=== PATIENT | male | born 1965 | race Caucasian/White ===

== ENCOUNTER 2020-12-20 18:11 | Observation (INO) ==
--- NOTE | 2020-12-20 19:08 | Emergency Department Note ---
History of Present Illness General Chief complaint: Neuro Symptoms/Deficit Stated complaint: BLACK OUT, CONFUSION, MEMORY LOSS Time Seen by Provider: 12/20/20 18:55 History of Present Illness Provider complaint: Difficulty speaking dysarthria Onset (ago): day(s) 2 Location: chest Severity: mild Pain Consistency: + intermittent Current Pain Intensity: 0 Quality: + aching Relieved By: + none Exacerbated By: + none Associated symptoms: + confusion, + chest pain and + weakness; no cough, no fever/chills, no headaches, no nausea/vomiting, no shortness of breath or no syncope 55-year-old male presents emergency department with . reports that yesterday they were going on vacation and she noticed that when they got to dinner the patient was disoriented and having difficulty speaking. She stated the patient was having difficulty speaking words. She also states that he was having some slurred speech when he was speaking. Patient states he got home and slept for a great amount of time because he was so tired when he woke up his symptoms got better. Today the patient's notes that his voice is still softer and muffled compared to in the past. Patient also reports some chest pain. Chest pain is currently mild and is intermittent. No difficulty b reathing. No falls or trauma recently. No headache. No blood thinning medication. Home Medications Medication Instructions Recorded Confirmed Type No Known Home Medications 12/20/20 12/20/20 History Allergies Allergy/AdvReac Type Severity Reaction Status Date / Time prednisone AdvReac Agitated, Unverified 12/20/20 20:09 Anxious Past Med/Surg History Medical History (Updated 12/21/20 @ 00:19 by Gold Prather) No significant past medical history Surgical History (Updated 12/20/20 @ 19:07 by Gold Prather) No pertinent past surgical history Family History Father Primary cancer of bone marrow Social History Smoking Status: Never smoker Hx Alcohol Use: No Hx Substance Use: No Preferred Language: Macedonian Beliefs That Will Affect Care: None marital status: Current Living Situation: Spouse Current Living Situation Comment: lives in 2 story home current occupational status: 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 Feels Safe at Home: Yes Safety Concerns: Feels Safe At This Time Assistive Devices: Glasses Review of Systems A total of 10 systems reviewed and were otherwise negative Physical Exam Vital Signs Vital Signs - 24 hr 12/20/20 18:16 12/20/20 20:17 Temperature 36.6 C Temperature Source Temporal Artery Scan Pulse Rate 70 Pulse Rate [Right] 58 L Pulse Rhythm Regular Pulse Strength Normal Respiratory Rate 18 16 Respiratory Effort / Characteristics Non-Labored Respiratory Depth Normal Respiratory Pattern Regular Blood Pressure 126/83 Blood Pressure [Left Arm] 108/76 Blood Pressure Mean 97 Blood Pressure Mean [Left Arm] 86 Blood Pressure Position Sitting Pulse Oximetry 97 97 Oxygen Delivery Method Room Air Room Air Sepsis Recent Fever Within 48 Hours No Sepsis New/Unexplained Change in Mental Status No Sepsis Action Taken by Nursing No Action Required Physical Exam GENERAL: He is oriented to person, place, and time. He appears well-developed and well-nourished. He does not appear distressed. HENT: Exam performed. - Head: Normocephalic and atraumatic. - Right Ear: External ear normal. No mastoid tenderness. - Left Ear: External ear normal. No mastoid tenderness. - Mouth/Throat: The oropharynx is clear and moist. No trismus in the jaw. No dental abscesses or uvula swelling. No oropharyngeal exudate or tonsillar abscesses. EYES: Conjunctivae and EOM are normal. Pupils are equal, round, and reactive to light. Right eye exhibits no discharge. Left eye exhibits no discharge. No scleral icterus. NECK: Normal range of motion. Neck supple. No JVD present. No spinous process tenderness present. No carotid bruit present. No rigidity. No tracheal deviation and normal range of motion present. No Brudzinski's sign and no Kernig's sign noted. CV: Normal rate, regular rhythm, normal heart sounds and intact distal pulses. There is no peripheral edema. Palpable radial pulses bue. PULM/CHEST: Effort normal and breath sounds normal. No respiratory distress. No stridor. He has no wheezes. He has no rales. - Chest Wall: He exhibits no tenderness. ABD: The abdomen is soft. Bowel sounds are normal. He has no distension. No mass is present. There is no tenderness. There is no rebound, no guarding, no Toth's sign and no tenderness at McBurney's point. Rovsig negative. MUSC/SKEL: Normal range of motion. There is no peripheral edema, tenderness or deformity. LYMPH: No cervical adenopathy. NEURO: He is alert and oriented to person, place, and time. He has normal strength. No cranial nerve deficit or sensory deficit. Coordination and gait normal. GCS eye subscore is 4. GCS verbal subscore is 5. GCS motor subscore is 6 . Cerebellar tests wnl. NIHSS: 0 SKIN: Skin is warm and dry. He is not diaphoretic. PSYCH: He has a normal mood and affect. Behavior is normal. Judgment and thought content normal. Course Course 1854: The patient was evaluated in room B11. A complete history and physical exam was performed Cardiac monitoring: An order was placed for continuous cardiac monitoring. The monitor shows a rate of 70 with sinus rhythm Patient symptoms have been going on for more than 24 hours. He states that some the symptoms have resolved. NIH stroke scale currently 0. Thus, patient is not a TPA candidate and no code stroke called at this time. 2054: Vital signs stable. Labs and imaging within normal limits. CT of the head is within normal limits. Patient will be admitted to the [facility] team for TIA. Discussed case with Dr. Lemus. Administered Medications Discontinued Medications Aspirin (Aspirin Chew 324 Mg) 324 mg PO NOW STA Stop: 12/20/20 21:06 Last Admin: 12/20/20 21:46 Dose: 324 mg Documented by: [id number] Ioversol (Optiray 320 125ml) 120 ml IV ONCE ONE Stop: 12/20/20 22:04 Last Admin: 12/20/20 22:06 Dose: 120 ml Documented by: [id number] Medical Decision Making Laboratory Data Result diagrams: 12/20/20 19:24 12/20/20 19:24 Lab Results 12/20/20 12/20/20 12/20/20 Range/Units 19:24 19:24 19:24 WBC 5.55 (4.8-10.8) K/uL RBC 4.91 (4.7-6.1) M/uL Hgb 14.7 (14.0-18.0) g/dL Hct 43.6 (42-52) % MCV 88.8 (80-100) fL MCH 29.9 (25-34) pg MCHC 33.7 (32-36) g/dL RDW Std Deviation 47.3 H (36.4-46.3) fL RDW Coeff of Amrtir 14.5 (11.5-14.5) % Plt Count 212 (130-400) K/uL MPV 10.8 H (7.4-10.4) fL Immature Gran % (Auto) 0.2 % Neut % (Auto) 54.4 % Lymph % (Auto) 32.3 % [place] % (Auto) 7.0 % Eos % (Auto) 5.6 % Baso % (Auto) 0.5 % Neut # (Auto) 3.02 (1.4-6.5) K/uL Lymph # (Auto) 1.79 (1.2-3.4) K/uL [place] # (Auto) 0.39 (0.11-0.59) K/uL Eos # (Auto) 0.31 (0-0.5) K/uL Baso # (Auto) 0.03 (0-0.2) K/uL Immature Gran # (Auto) 0.01 (0.00-0.02) K/uL PT 10.1 (9.0-12.0) Seconds INR 1.0 (0.9-1.1) APTT 25.1 (21.0-31.0) Seconds PTT Ratio 1.0 Sodium (136-145) mmol/L Potassium (3.5-5.1) mmol/L Chloride (98-107) mmol/L Carbon Dioxide (21-32) mmol/L Anion Gap (3-11) BUN (7-18) mg/dl Creatinine (0.6-1.4) mg/dl Est Cr Clr Drug Dosing ml/min Est GFR ( Amer) ml/min Est GFR (Non-Af Amer) ml/min BUN/Creatinine Ratio (10-20) Glucose (70-99) mg/dl Calcium (8.5-10.1) mg/dl Magnesium (1.8-2.4) mg/dl Total Bilirubin (0.2-1) mg/dl AST (15-37) U/L ALT (12-78) U/L Alkaline Phosphatase (45-117) U/L Troponin I (0-0.045) ng/ml Total Protein (6.4-8.2) gm/dl Albumin (3.4-5.0) gm/dl Globulin (2.5-4.0) gm/dl Albumin/Globulin Ratio (0.9-2) COVID-19 Eval Order SARS-CoV-2 (PCR) (Negative) Blood Type O Positive Antibody Screen NEGATIVE 12/20/20 12/20/20 12/20/20 Range/Units 19:24 19:25 19:25 WBC (4.8-10.8) K/uL RBC (4.7-6.1) M/uL Hgb (14.0-18.0) g/dL Hct (42-52) % MCV (80-100) fL MCH (25-34) pg MCHC (32-36) g/dL RDW Std Deviation (36.4-46.3) fL RDW Coeff of Martir (11.5-14.5) % Plt Count (130-400) K/uL MPV (7.4-10.4) fL Immature Gran % (Auto) % Neut % (Auto) % Lymph % (Auto) % [place] % (Auto) % Eos % (Auto) % Baso % (Auto) % Neut # (Auto) (1.4-6.5) K/uL Lymph # (Auto) (1.2-3.4) K/uL [place] # (Auto) (0.11-0.59) K/uL Eos # (Auto) (0-0.5) K/uL Baso # (Auto) (0-0.2) K/uL Immature Gran # (Auto) (0.00-0.02) K/uL PT (9.0-12.0) Seconds INR (0.9-1.1) APTT (21.0-31.0) Seconds PTT Ratio Sodium 140 (136-145) mmol/L Potassium 3.7 (3.5-5.1) mmol/L Chloride 106 (98-107) mmol/L Carbon Dioxide 29 (21-32) mmol/L Anion Gap 5.0 (3-11) BUN 21 H (7-18) mg/dl Creatinine 1.27 (0.6-1.4) mg/dl Est Cr Clr Drug Dosing 64.9 ml/min Est GFR ( Amer) 72.7 ml/min Est GFR (Non-Af Amer) 62.7 ml/min BUN/Creatinine Ratio 16.5 (10-20) Glucose 92 (70-99) mg/dl Calcium 8.8 (8.5-10.1) mg/dl Magnesium 2.2 (1.8-2.4) mg/dl Total Bilirubin 0.4 (0.2-1) mg/dl AST 19 (15-37) U/L ALT 32 (12-78) U/L Alkaline Phosphatase 70 (45-117) U/L Troponin I < 0.015 (0-0.045) ng/ml Total Protein 7.5 (6.4-8.2) gm/dl Albumin 3.9 (3.4-5.0) gm/dl Globulin 3.6 (2.5-4.0) gm/dl Albumin/Globulin Ratio 1.1 (0.9-2) COVID-19 Eval Order Covid19 at [facility] SARS-CoV-2 (PCR) NEGATIVE (Negative) Blood Type Antibody Screen Imaging Data Radiologist's Impression: Chest X-Ray 12/20/20 19:03 XR chest 1V portable CLINICAL HISTORY: Stroke Like Symptoms COMPARISON STUDY: No previous studies for comparison. FINDINGS: No pneumothorax. No pleural effusion. No large infiltrates or consolidative lesions are seen. Cardiomediastinal silhouette is within normal limits in size. No significant pulmonary vascular congestion.. Osseous structures: unremarkable IMPRESSION: 1. No acute pulmonary process. ACT 112: Negative or not required by law. The above report was generated using voice recognition software. It may contain grammatical, syntax or spelling errors. Electronically signed by: Loreta Box DO 12/20/2020 8:[address] 12/20/20 19:03 CT head/brain wo con CLINICAL HISTORY: Stroke Like Symptoms COMPARISON STUDY: No previous studies for comparison. TECHNIQUE: Axial CT of the brain is performed from the vertex to the skull base. IV contrast was not administered for this examination. A dose lowering technique was utilized adhering to the principles of ALARA. CT DOSE: 1074.96 mGy.cm FINDINGS: No intra or extra-axial mass lesions are visualized. There is no CT evidence of acute cortical infarction. There is no evidence of midline shift. There is no acute hemorrhage. No acute depressed calvarial fractures are visualized. There is no evidence of pathologic ventricular dilatation. Few mucous polyps are seen within left sphenoid sinus. Partial opacification of bilateral ethmoid air cells. IMPRESSION: No acute intracranial hemorrhage, no midline shift or space occupying lesions. Sinusitis. ACT 112: Negative or not required by law. The above report was generated using voice recognition software. It may contain grammatical, syntax or spelling errors. Electronically signed by: Loreta Box DO 12/20/2020 7:55 PM ECG Data Indication: + weakness Rate (beats per minute): 61 Rhythm: + normal sinus ECG Intervals/blocks: + Normal QRS, + Normal WA and + Normal QT-c ECG ST segments: + Normal ST segments MDM Narrative 1854: The patient was evaluated in room B11. A complete history and physical exam was performed Cardiac monitoring: An order was placed for continuous cardiac monitoring. The monitor shows a rate of 70 with sinus rhythm Patient symptoms have been going on for more than 24 hours. He states that some the symptoms have resolved. NIH stroke scale currently 0. Thus, patient is not a TPA candidate and no code stroke called at this time. 2054: Vital signs stable. Labs and imaging within normal limits. CT of the head is within normal limits. Patient will be admitted to the [facility] team for TIA. Discussed case with Dr. Lemus. Impression & Plan Brain TIA Discharge Plan Visit Data Chief Complaint: Neuro Symptoms/Deficit Stated Complaint: BLACK OUT, CONFUSION, MEMORY LOSS ED Provider: Gold Prather Discharge Problem: Brain TIA Patient Disposition: Admitted As Inpatient Discharge Instructions Interventions: ED Discharge Assessment Last Done: 12/20/20 21:47
[2020-12-20 19:32] LABS: Basophils # (auto) 0.03 K/uL (0-0.2); Basophils % (auto) 0.5 %; Eosinophils # (auto) 0.31 K/uL (0-0.5); Eosinophils % (auto) 5.6 %; Hematocrit (blood only) 43.6 % (42-52); Hemoglobin 14.7 g/dL (14.0-18.0); Immature Granulocytes # (auto) 0.01 K/uL (0.00-0.02); Immature Granulocytes % (auto) 0.2 %; Lymphocytes # (auto) 1.79 K/uL (1.2-3.4); Lymphocytes % (auto) 32.3 %; Mean Corpuscular Hemoglobin 29.9 pg (25-34); Mean Corpuscular Hgb Conc 33.7 g/dL (32-36); Mean Corpuscular Volume 88.8 fL (80-100); Mean Platelet Volume 10.8 fL (7.4-10.4); Monocytes # (auto) 0.39 K/uL (0.11-0.59); Neutrophils # (auto) 3.02 K/uL (1.4-6.5); Neutrophils % (auto) 54.4 %; Platelet Count 212 K/uL (130-400); RDW Coefficient of Variation 14.5 % (11.5-14.5); RDW Standard Deviation 47.3 fL (36.4-46.3); Red Blood Count 4.91 M/uL (4.7-6.1); White Blood Count 5.55 K/uL (4.8-10.8)
[2020-12-20 19:44] LABS: Partial Thromboplastin Time 25.1 Seconds (21.0-31.0); Prothrombin Time 10.1 Seconds (9.0-12.0)
[2020-12-20 19:50] LABS: Alanine Aminotransferase 32 U/L (12-78); Albumin Level 3.9 gm/dl (3.4-5.0); Aspartate Aminotransferase 19 U/L (15-37); BUN Creatinine Ratio 16.5 (10-20); Blood Urea Nitrogen 21 mg/dl (7-18); Calcium 8.8 mg/dl (8.5-10.1); Carbon Dioxide 29 mmol/L (21-32); Chloride 106 mmol/L (98-107); Creatinine Clr Calc Pharmacy 64.9 ml/min; Est GFR (African American) 72.7 ml/min; Est GFR (Non-African American) 62.7 ml/min; Glucose 92 mg/dl (70-99); Magnesium 2.2 mg/dl (1.8-2.4); Potassium 3.7 mmol/L (3.5-5.1); Sodium 140 mmol/L (136-145)
[2020-12-20 19:55] LABS: Albumin Globulin Ratio 1.1 (0.9-2); Alkaline Phosphatase 70 U/L (45-117); Bilirubin,Total 0.4 mg/dl (0.2-1); Globulin 3.6 gm/dl (2.5-4.0); Total Protein 7.5 gm/dl (6.4-8.2); Troponin I < 0.015 ng/ml (0-0.045)
--- NOTE | 2020-12-20 19:56 | CT Scan Report ---
CT head/brain wo con CLINICAL HISTORY: Stroke Like Symptoms COMPARISON STUDY: No previous studies for comparison. TECHNIQUE: Axial CT of the brain is performed from the vertex to the skull base. IV contrast was not administered for this examination. A dose lowering technique was utilized adhering to the principles of ALARA. CT DOSE: 1074.96 mGy.cm FINDINGS: No intra or extra-axial mass lesions are visualized. There is no CT evidence of acute cortical infarc tion. There is no evidence of midline shift. There is no acute hemorrhage. No acute depressed calvar ial fractures are visualized. There is no evidence of pathologic ventricular dilatation. Few mucous polyps are seen within left sphenoid sinus. Partial opacification of bilateral ethmoid air cells. IMPRESSION: No acute intracranial hemorrhage, no midline shift or space occupying lesions. Sinusitis. ACT 112: Negative or not required by law. The above report was generated using voice recognition software. It may contain grammatical, syntax o r spelling errors. Electronically signed by: Loreta Box DO 12/20/2020 7:55 PM
--- NOTE | 2020-12-20 20:22 | XRay Report ---
XR chest 1V portable CLINICAL HISTORY: Stroke Like Symptoms COMPARISON STUDY: No previous studies for comparison. FINDINGS: No pneumothorax. No pleural effusion. No large infiltrates or consolidative lesions are seen. Cardiomediastinal silhouette is within normal limits in size. No significant pulmonary vascular congestion.. Osseous structures: unremarkable IMPRESSION: 1. No acute pulmonary process. ACT 112: Negative or not required by law. The above report was generated using voice recognition software. It may contain grammatical, syntax o r spelling errors. Electronically signed by: Loreta Box DO 12/20/2020 8:21 PM
[2020-12-20] MEDS ORDERED: ASPIRIN CHEW 324 MG PO STA (21:05)
--- NOTE | 2020-12-20 21:16 | History & Physical Report ---
Date of Service December 20, 2020 Assessment & Plan (1) Brain TIA: Plan: 55-year-old male admitted for TIA work-up. TIA CT head negative, CTA head and neck pending, MRI head ordered. Lipid panel and A1c in the morning Given recurrent episodes questionable repeat TIAs versus cardiac embolic events Echo ordered Neurology consult Received 325 of aspirin in ER. 81 mg aspirin daily started as well as atorvastatin 40 With description of out of body experience and young age without personal or family history of cardioembolic disease, some question of autoimmune origin of symptoms.MEME with reflex, beta-2 glycoprotein, cardiolipin, homocystine, lupus anticoagulant all pending. dvt ppx: lovenox fen/gi: npo until echo and speech eval code status: full code dispo: med tele History of Present Illness Primary Care Provider: SEAMUS Junior 55-year-old otherwise healthy male presenting to the emergency department for recent symptoms of trouble speaking, "out of body experience". He states that yesterday while he was driving with his he all of a sudden felt an odd sensation come over him and felt that he was not safe to drive. They arrived at the restaurant they were going to for dinner and he describes a feeling of not really being aware of what he was doing. He states he also had trouble forming the words he wanted to say. He states he did not have trouble thinking of them or understanding what people were saying just being able to state them himself. He denies any trouble with chewing or swallowing that day at dinner. His stated that he was acting abnormally for himself, such as not paying attention to what was going on around them and getting into the backseat of the car after dinner stating that he was not going to drive. She states that he proceeded to sit in the passenger side seat in the front and while she drove home for the next 2 hours he proceeded to be in and out of consciousness. He describes a out of body experience where he was looking down upon himself but is not able to describe much more than that. His was also present to the emergency department for the interview, states that approximately a week ago episode where he suddenly fell forward without any reason. And the week before that he was having trouble remembering things short-term memory which was not something he normally had a problem with. No personal or family history of cardiac disease, hypertension, stroke, diabetes. Patient takes herbal supplements for constipation, turmeric, vitamin D, magnesium. Allergies Allergy/AdvReac Type Severity Reaction Status Date / Time prednisone AdvReac Agitated, Unverified 12/20/20 20:09 Anxious Home Medications Medication Instructions Recorded Confirmed Type atorvastatin 40 mg tablet 40 mg PO QAM 30 Days #30 tab 12/21/20 Rx Past Med/Surg History Medical History (Updated 12/21/20 @ 10:20 by Giovanni Pierce MD) No significant past medical history Surgical History (Updated 12/20/20 @ 19:07 by Gold Prather) No pertinent past surgical history Family History Father Primary cancer of bone marrow Social History Smoking Status: Never smoker Hx Alcohol Use: No Hx Substance Use: No Preferred Language: Tamazight Beliefs That Will Affect Care: None marital status: Current Living Situation: Spouse Current Living Situation Comment: lives in 2 story home current occupational status: 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 Feels Safe at Home: Yes Assistive Devices: None Review of Systems Constitutional: no fever, no chills, no sweats and no fatigue Eyes: no blind spots and no discharge Ear, Nose, Mouth, Throat: no hearing loss and no nasal congestion Respiratory: no cough and no dyspnea Cardiovascular: no chest pain, no dyspnea on exertion and no edema Gastrointestinal: no abdominal pain, no nausea, no vomiting, no constipation, no diarrhea/loose stools and no blood in stools Musculoskeletal: no joint pain and no myalgia Neurologic: + abnormal speech and + memory loss; no tingling, no numbness and no headache(s) Endocrine: no fatigue Physical Exam Physical Exam: Constitutional: in no apparent distress, sitting comfortably in bed. Eyes: EOMI, pupils equal and reactive bilaterally, no scleral icterus Cardiac: RRR, no murmurs, gallops or rubs. Normal S1, S2 Pulm: CTA BL, no wheezes, rhonchi, crackles or rubs, moving air well throughout both lungs Abd: soft, nontender, nondistended, normal bowel sounds, no rebound or guarding Extremities: 2+ peripheral pulses, no edema Neuro: no focal deficits, moving all 4 limbs, A&Ox3 Results & Data Results & Data ([facility]) Vital Signs (Past 12 Hours) Vital Signs Temp Pulse Pulse Resp BP BP Pulse Ox 12/20/20 20:17 58 L 16 108/76 97 12/20/20 18:16 36.6 C 70 18 126/83 97 Laboratory Results Laboratory Results WBC 5.55 K/uL (4.8-10.8) 12/20/20 19:24 RBC 4.91 M/uL (4.7-6.1) 12/20/20 19:24 Hgb 14.7 g/dL (14.0-18.0) 12/20/20 19:24 Hct 43.6 % (42-52) 12/20/20 19:24 MCV 88.8 fL (80-100) 12/20/20 19:24 MCH 29.9 pg (25-34) 12/20/20 19:24 MCHC 33.7 g/dL (32-36) 12/20/20 19:24 RDW Std Deviation 47.3 fL (36.4-46.3) H 12/20/20 19:24 RDW Coeff of Martir 14.5 % (11.5-14.5) 12/20/20 19:24 Plt Count 212 K/uL (130-400) 12/20/20 19:24 MPV 10.8 fL (7.4-10.4) H 12/20/20 19:24 Immature Gran % (Auto) 0.2 % 12/20/20 19:24 Neut % (Auto) 54.4 % 12/20/20 19:24 Lymph % (Auto) 32.3 % 12/20/20 19:24 [place] % (Auto) 7.0 % 12/20/20 19:24 Eos % (Auto) 5.6 % 12/20/20 19:24 Baso % (Auto) 0.5 % 12/20/20 19:24 Neut # (Auto) 3.02 K/uL (1.4-6.5) 12/20/20 19:24 Lymph # (Auto) 1.79 K/uL (1.2-3.4) 12/20/20 19:24 [place] # (Auto) 0.39 K/uL (0.11-0.59) 12/20/20 19:24 Eos # (Auto) 0.31 K/uL (0-0.5) 12/20/20 19:24 Baso # (Auto) 0.03 K/uL (0-0.2) 12/20/20 19:24 Immature Gran # (Auto) 0.01 K/uL (0.00-0.02) 12/20/20 19:24 PT 10.1 Seconds (9.0-12.0) 12/20/20 19:24 INR 1.0 (0.9-1.1) 12/20/20 19:24 APTT 25.1 Seconds (21.0-31.0) 12/20/20 19:24 PTT Ratio 1.0 12/20/20 19:24 Sodium 140 mmol/L (136-145) 12/20/20 19:24 Potassium 3.7 mmol/L (3.5-5.1) 12/20/20 19:24 Chloride 106 mmol/L (98-107) 12/20/20 19:24 Carbon Dioxide 29 mmol/L (21-32) 12/20/20 19:24 Anion Gap 5.0 (3-11) 12/20/20 19:24 BUN 21 mg/dl (7-18) H 12/20/20 19:24 Creatinine 1.27 mg/dl (0.6-1.4) 12/20/20 19:24 Est Cr Clr Drug Dosing 64.9 ml/min 12/20/20 19:24 Est GFR ( Amer) 72.7 ml/min 12/20/20 19:24 Est GFR (Non-Af Amer) 62.7 ml/min 12/20/20 19:24 BUN/Creatinine Ratio 16.5 (10-20) 12/20/20 19:24 Glucose 92 mg/dl (70-99) 12/20/20 19:24 POC Glucose 107 mg/dl (70-99) H 12/20/20 22:38 Calcium 8.8 mg/dl (8.5-10.1) 12/20/20 19:24 Magnesium 2.2 mg/dl (1.8-2.4) 12/20/20 19:24 Total Bilirubin 0.4 mg/dl (0.2-1) 12/20/20 19:24 AST 19 U/L (15-37) 12/20/20 19:24 ALT 32 U/L (12-78) 12/20/20 19:24 Alkaline Phosphatase 70 U/L (45-117) 12/20/20 19:24 Troponin I < 0.015 ng/ml (0-0.045) 12/20/20 19:24 Total Protein 7.5 gm/dl (6.4-8.2) 12/20/20 19:24 Albumin 3.9 gm/dl (3.4-5.0) 12/20/20 19:24 Globulin 3.6 gm/dl (2.5-4.0) 12/20/20 19:24 Albumin/Globulin Ratio 1.1 (0.9-2) 12/20/20 19:24 COVID-19 Eval Order Covid19 at [facility] 12/20/20 19:25 SARS-CoV-2 (PCR) NEGATIVE (Negative) 12/20/20 19:25 Blood Type O Positive 12/20/20 19:24 Antibody Screen NEGATIVE 12/20/20 19:24 Impressions Chest X-Ray 12/20/20 19:03 XR chest 1V portable CLINICAL HISTORY: Stroke Like Symptoms COMPARISON STUDY: No previous studies for comparison. FINDINGS: No pneumothorax. No pleural effusion. No large infiltrates or consolidative lesions are seen. Cardiomediastinal silhouette is within normal limits in size. No significant pulmonary vascular congestion.. Osseous structures: unremarkable IMPRESSION: 1. No acute pulmonary process. ACT 112: Negative or not required by law. The above report was generated using voice recognition software. It may contain grammatical, syntax or spelling errors. Electronically signed by: Loreta Box DO 12/20/2020 8:[address] 12/20/20 19:03 CT head/brain wo con CLINICAL HISTORY: Stroke Like Symptoms COMPARISON STUDY: No previous studies for comparison. TECHNIQUE: Axial CT of the brain is performed from the vertex to the skull base. IV contrast was not administered for this examination. A dose lowering technique was utilized adhering to the principles of ALARA. CT DOSE: 1074.96 mGy.cm FINDINGS: No intra or extra-axial mass lesions are visualized. There is no CT evidence of acute cortical infarction. There is no evidence of midline shift. There is no acute hemorrhage. No acute depressed calvarial fractures are visualized. There is no evidence of pathologic ventricular dilatation. Few mucous polyps are seen within left sphenoid sinus. Partial opacification of bilateral ethmoid air cells. IMPRESSION: No acute intracranial hemorrhage, no midline shift or space occupying lesions. Sinusitis. ACT 112: Negative or not required by law. The above report was generated using voice recognition software. It may contain grammatical, syntax or spelling errors. Electronically signed by: Loreta Box DO 12/20/2020 7:55 PM Supervising Physician Co-Signing Physician Notes Attending addendum: I have physically seen this patient, have supervised the medical residents activities, and agree with the H&P unless as otherwise noted. Assessment and Plan: Brain TIA symptoms- The patient will be admitted to telemetry for serial cardiac enzymes, serial EKG's, cardiac rhythm monitoring and a 2-D echocardiogram with Dopplers. CT head negative Ordering CTA head neck Ordering MRI of brain Hypercoagulable work-up for low flow state Give aspirin 324 mg now, and then 81 mg every morning Consult PT/OT/speech/neurology Stroke without TPA order set Remaining orders and notations as noted Resident Activity Tracking Resident Involvement: Resident Care Provided Care Provided: Adult Hospital Medicine
[2020-12-20] MEDS ORDERED: OPTIRAY 320 125ml IV ONE (22:03)
[2020-12-20] MEDS ORDERED: PHARMACIST DISCHARGE MED REC CONSULT PRN (22:32)
[2020-12-21] MEDS ORDERED: POLYETHYLENE (MIRALAX) 17 GM PACK PO PRN (05:00)
[2020-12-21] MEDS ORDERED: ACETAMINOPHEN 325 MG TAB PO PRN (05:00)
[2020-12-21] MEDS ORDERED: ONDANSETRON INJ 2 MG/ML 2 ML VIAL IV PRN (05:00)
[2020-12-21] MEDS ORDERED: MAGNESIUM HYDROXIDE SUSP 30 ML UDC PO PRN (05:00)
--- NOTE | 2020-12-21 07:19 | Magnetic Resonance Report ---
MRI OF THE BRAIN WITHOUT IV CONTRAST CLINICAL HISTORY: Transient ischemic attack. COMPARISON STUDY: CT of the brain dated 12/20/2020. TECHNIQUE: MRI of the brain was performed utilizing various T1 and T2-weighted sequences in the axial , sagittal, and coronal planes. IV contrast was not administered for this examination. FINDINGS: Brain parenchyma: There is minimal microangiopathic change. The brain parenchyma is otherwise normal in appearance. There is no hemorrhage or mass effect. There is no restricted diffusion to suggest acu te ischemia. Aguilar-white matter differentiation is preserved. No extra-axial fluid collection is seen. The cerebellar tonsils are normal in configuration. Ventricles, sulci, and cisterns: Normal in configuration. Pituitary and sella: Unremarkable. Intracranial vasculature: Normal flow voids are maintained at the skull base. Orbits: The bony orbits are grossly intact. Orbital contents are normal in appearance. Sinuses and mastoids: There is moderate mucosal thickening within the frontal, ethmoid, and maxillary sinuses. Trace mucosal thickening is seen in the sphenoid sinuses. The mastoid air cells are clear. Calvarium: Unremarkable. Cervical cord: Partially visualized cervical spinal cord is normal in morphology and signal intensity . IMPRESSION: 1. No acute intracranial abnormality. 2. Paranasal sinus disease as above. ACT 112: Negative or not required by law. Electronically signed by: Cedric Gracia M.D. 12/21/2020 7:18 AM
--- NOTE | 2020-12-21 07:27 | CT Scan Report ---
CT ANGIOGRAM OF THE BRAIN; CT ANGIOGRAM OF THE NECK CLINICAL HISTORY: Transient ischemic attack. COMPARISON STUDY: Unenhanced CT of the brain performed concurrently on 12/20/2020. TECHNIQUE: Following the IV administration of 120 of Optiray 320, CT angiogram of the head and neck w as performed from the aortic arch to the vertex. Images are reviewed in the axial, sagittal, and ligia nal planes. 3-D MIPS images are created and assessed. IV contrast was administered without complicati on. All measurements were calculated based on NASCET criteria. A dose lowering technique was utilize d adhering to the principles of ALARA. CT DOSE: 500.66 mGy.cm FINDINGS: Brain parenchyma: The brain parenchyma is normal in appearance. There is no hemorrhage, mass effect, or evidence of acute territorial ischemia by CT criteria. There is no evidence of enhancing mass lesi on on the angiogram phase images. The ventricles, sulci, and cisterns are normal in configuration. Gr ay-white matter differentiation is preserved. No extra-axial fluid collection is seen. Thoracic aorta: Visualized portions of the thoracic aorta are normal in caliber. The aortic arch demo nstrates 4-vessel variant anatomy. The left vertebral artery arises directly from the thoracic aorta. Right carotid arterial system: The right common carotid artery is widely patent, as are the right int ernal and external carotid arteries. Left carotid arterial system: The left common carotid artery is widely patent, as are the left international flight attendant al and external carotid arteries. Vertebral arteries: The vertebral arteries are widely patent and codominant. Subclavian arteries: Widely patent bilaterally. Intracranial vasculature: The [place] of [place] is developmentally complete. The right P1 segment is d iminutive, with a large right posterior communicating artery. The internal carotid arteries are paten t at the skull base, as are the anterior and middle cerebral arteries bilaterally. The vertebrobasila r system and posterior cerebral arteries are widely patent. The vertebral arteries are codominant. Th ere is no aneurysm, high-grade stenosis, or focal vessel cut off seen throughout the intracranial cir culation. Jugular veins: Patent bilaterally. Dural sinuses: Patent. Lung apices: Partially visualized upper lobe lung parenchyma appears clear. Soft tissues: The visualized pharyngeal soft tissues are normal in appearance noting angiographic pha se technique. The oropharyngeal airway appears widely patent. The salivary and thyroid glands are nor mal in appearance. No cervical lymphadenopathy is seen. Skeletal structures: The calvarium appears intact. The cervical spine is within normal limits. No lyt ic or blastic lesion is seen. Orbits: The bony orbits are intact. Orbital contents are normal as visualized. Sinuses and mastoids: There is evidence of previous paranasal sinus surgery. There is moderate mucosa l thickening within the maxillary and ethmoid sinuses. Mild mucosal thickening is seen within the fro ntal and sphenoid sinuses. The mastoid air cells are well pneumatized. IMPRESSION: 1. There is no evidence of hemorrhage, mass effect, or acute territorial ischemia noting angiographic phase technique. 2. Unremarkable CT angiogram of the brain. 3. Unremarkable CT angiogram of the neck. ACT 112: Negative or not required by law. Electronically signed by: Cedric Gracia M.D. 12/21/2020 7:26 AM
[2020-12-21 07:52] LABS: Basophils # (auto) 0.03 K/uL (0-0.2); Basophils % (auto) 0.5 %; Eosinophils # (auto) 0.54 K/uL (0-0.5); Eosinophils % (auto) 9.6 %; Hematocrit (blood only) 43.9 % (42-52); Hemoglobin 14.8 g/dL (14.0-18.0); Immature Granulocytes # (auto) 0.01 K/uL (0.00-0.02); Immature Granulocytes % (auto) 0.2 %; Lymphocytes # (auto) 1.67 K/uL (1.2-3.4); Lymphocytes % (auto) 29.7 %; Mean Corpuscular Hemoglobin 29.9 pg (25-34); Mean Corpuscular Hgb Conc 33.7 g/dL (32-36); Mean Corpuscular Volume 88.7 fL (80-100); Mean Platelet Volume 10.9 fL (7.4-10.4); Monocytes # (auto) 0.46 K/uL (0.11-0.59); Monocytes % (auto) 8.2 %; Neutrophils # (auto) 2.91 K/uL (1.4-6.5); Neutrophils % (auto) 51.8 %; Platelet Count 200 K/uL (130-400); RDW Coefficient of Variation 14.7 % (11.5-14.5); RDW Standard Deviation 47.4 fL (36.4-46.3); Red Blood Count 4.95 M/uL (4.7-6.1); White Blood Count 5.62 K/uL (4.8-10.8)
[2020-12-21 08:17] LABS: BUN Creatinine Ratio 16.2 (10-20); Creatinine Clr Calc Pharmacy 77.8 ml/min; Est GFR (African American) 90.5 ml/min; Est GFR (Non-African American) 78.1 ml/min; Potassium 3.6 mmol/L (3.5-5.1)
[2020-12-21] MEDS ORDERED: ASPIRIN 81 MG ECTAB PO SCH (09:00)
[2020-12-21] MEDS ORDERED: ATORVASTATIN 40 MG TAB PO SCH (09:00)
[2020-12-21] MEDS ORDERED: ENOXAPARIN INJ 40 MG/0.4 ML SYR SQ SCH (09:00)
--- NOTE | 2020-12-21 10:32 | Neurology Consultation ---
Date of Consultation December 21, 2020 Assessment & Plan (1) Transient neurological symptoms: (2) Pre-syncope: This patient has had at least 3 unusual episodes within the past 2 to 3 weeks. 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 The second episode occurred while at [employer] was characterized by transient anxiety and perhaps some associated speech difficulty. The third episode occurred while on a trip to the [facility] with his spouse and was very unusual, described as an out of body experience, confusion, and speech change apparently persisting for several hours but for the most part resolving upon awakening the following day but nonetheless significant enough that he was brought to the hospital for further evaluation and management. He has had an unremarkable imaging evaluation thus far including CT of the head, CT angiography of the head and neck, and brain MRI. He has an intact neurological examination this morning and was also intact during his evaluation in the emergency department. His presentation would be unusual for stroke or TIA or seizure disorder. However, TIA may not be completely excluded. Furthermore, some of his symptoms could be suggestive of presyncope. Follow-up with results of echocardiogram. Consider obtaining 30-day mobile cardiac outpatient telemetry. Starting daily low-dose aspirin and a statin is not unreasonable in this patient. To what extent anxiety and stress could have contributed to this patient's symptoms is not entirely clear. Potential mood and emotional factors may need to be explored further as an outpatient. History of Present Illness Reason for Consultation: TIA? Requesting Physician: Gold Prather Attending Physician: Claude Perez DO History of Present Illness The patient is a 55-year-old male who complains of several unusual episodes occurring over the past 2 to 3 weeks. He recalls an episode while working outside, moving some railroad ties when he suddenly felt dizzy, lightheaded, perceived vision dimming down, as if his strength was leaving his body. He apparently collapsed to the ground and lost his glasses at that time. He walked into the house feeling a bit dizzy. He then had another episode while at [employer], although a bit different, characterized by a vague feeling of unease and anxiety with perhaps some difficulty formulating his thoughts and words. There was no associated near syncopal symptomatology, however. The patient remarks that he has been under a significant degree of stress recently after learning that a close friend was critically ill due to an accident. He then had another episode that occurred while driving to the [employer]. He describes a vague feeling of confusion or difficulty with visual perception or tracking, but without associated double vision or vision loss. He felt somewhat outside of himself and had difficulty formulating his thoughts. His spouse apparently drove him home and indicated that he was behaving strangely. He apparently fell asleep and upon awakening the following day was brought to the emergency department for further evaluation as he was felt to still have some difficulty with speech. The patient denies a history of syncope or seizure disorder. He does endorse some emotional distress and anxiety recently related to a close friend's critical injuries. He does not take any prescription medications and denies excessive use of alcohol. He did have a CT of the head and CT angiogram of the head and neck that were completely unremarkable, no evidence of hemorrhage or acute process. No vascular lesions. He had an unremarkable brain MRI as well, no evidence of acute or subacute stroke. No significant parenchymal abnormality. There is evidence of chronic small vessel ischemic disease. I did review the images as well as the radiologist's interpretation of these tests. This morning, the patient remarks that he feels fine. He denies headache, vision disturbance, change in speech, confusion, or focal weakness. Allergies Allergy/AdvReac Type Severity Reaction Status Date / Time prednisone AdvReac Agitated, Unverified 12/20/20 20:09 Anxious Home Medications Medication Instructions Recorded Confirmed Type No Known Home Medications 12/20/20 12/20/20 History Patient History Medical History (Updated 12/21/20 @ 10:20 by Giovanni Pierce MD) No significant past medical history Surgical History (Updated 12/20/20 @ 19:07 by Gold Prather) No pertinent past surgical history Family History Father Primary cancer of bone marrow Social History Smoking Status: Never smoker Hx Alcohol Use: No Hx Substance Use: No Preferred Language: Uzbek Beliefs That Will Affect Care: None marital status: Current Living Situation: Spouse Current Living Situation Comment: lives in 2 story home current occupational status: 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 Feels Safe at Home: Yes Safety Concerns: Feels Safe At This Time Assistive Devices: None Review of Systems Constitutional: no fever and no chills Eyes: no blind spots and no diplopia Ear, Nose, Mouth, Throat: no ear pain and no hearing loss Respiratory: no cough and no dyspnea Cardiovascular: no chest pain and no palpitations Gastrointestinal: no constipation and no diarrhea/loose stools Genitourinary: no urinary incontinence or no urinary urgency Musculoskeletal: no muscle weakness and no muscle atrophy Integumentary: no rash and no lesions Neurologic: as per Subjective / HPI Psychiatric: no behavioral changes, no depression, no abnormal sleep pattern and no anxiety Hematologic / Lymphatic: no easy bruising and no lymphadenopathy Exam (Neuro) Constitutional: well developed and well nourished; no acute distress Eyes: normal visual nieves by confrontation, PERRL, normal accommodation and EOM intact bilaterally; no fundoscopic abnormality, no nystagmus and no papilledema Cardiovascular: Vessels: normal carotid upstroke; no carotid bruit Neurologic: Oriented to:: Person, Place and Time Memory: Short Term Intact and Remote Intact Attention: Span Intact and Concentration Intact Language: Naming Objects and Repeating Phrases Speech Fluency: negative Dysarthria Speech Aphasia: negative Aphasia Fund of Knowledge: Current Events, Past History and Vocabulary Cranial Nerves: Normal II (Visual nieves full to confrontation, visual acuity normal), III, IV, (Pupils equal round reactive to light and accommodation, eye movements normal), V (Facial sensation intact), VII (There is no facial droop or weakness), VIII (Hearing intact), IX, X (Palate elevates to midline), XI (Shoulder shrug intact) and XII (Tongue protrudes to midline) Motor Strength: Normal Lower Extremities and Normal Upper Extremities; negative Pronator Drift Motor Tone: Normal Lower Extremities and Normal Upper Extremities Muscle Bulk/Involuntary Movements: No Involuntary Movements; negative Muscle Atrophy Sensation: Light Touch Intact, Pain/Temperature Intact, Vibration Intact and Proprioception Intact Coordination: Normal; negative Limited Balance, Dysdiadochokinesia, Finger-Nose Abnormal or Heel-Valentino Abnormal Deep Tendon Reflexes: Rt Triceps: 2+, Lt Triceps: 2+, Rt Biceps: 2+, Lt Biceps: 2+, Rt Brachioradialis: 2+, Lt Brachioradialis: 2+, Rt Patellar: 2+, Lt Patellar: 2+, Rt Ankle: 2+ and Lt Ankle: 2+ Special Tests: negative Babinski Present Gait: Normal Station and Gait Results & Data ([facility]) Vital Signs (Past 12 Hours) Vital Signs Temp Pulse Pulse Pulse Pulse Resp BP 12/21/20 07:47 49 L 12/21/20 07:45 36.5 C 59 L 18 12/21/20 03:46 36.4 C L 53 L 18 96/63 L 12/21/20 00:40 55 L 12/21/20 00:16 36.4 C L 50 L 18 118/73 12/20/20 22:45 36.5 C 54 L 18 12/20/20 22:41 36.5 C 54 L 18 BP Pulse Ox 12/21/20 07:47 12/21/20 07:45 111/72 96 12/21/20 03:46 95 12/21/20 00:40 12/21/20 00:16 98 12/20/20 22:45 136/78 99 12/20/20 22:41 136/78 99 Laboratory Results WBC 5.62, hemoglobin 14.8, hematocrit 43.9, platelet count 200, sodium 140, potassium 3.6, BUN 17, creatinine 1.06, glucose 95, calcium 9.0, magnesium 2.2, AST 19, ALT 32, troponin less than 0.015, triglycerides 142, cholesterol 255, LDL 176, VLDL 28, HDL [address] of the head, CT angiography of the head and neck, and brain MRI are as described in the history of present illness. I reviewed the images as well as the radiologist's interpretation of these tests. Electrocardiogram reveals a normal sinus rhythm, 61 bpm. Coding Level of Care Code 03667 Inpt Consult Level 5 Diagnoses Transient neurological symptoms R29.818 Pre-syncope R55
[2020-12-21 14:27] LABS: Estimated Average Glucose 128 mg/dl; Hemoglobin A1C 6.1 % (4.5-5.6)
--- NOTE | 2020-12-21 15:52 | XCELERA ---
[id number]
--- NOTE | 2020-12-21 16:16 | Discharge Summary ---
Date of Service December 21, 2020 Admission HPI Per Admitting Provider 55-year-old otherwise healthy male presenting to the emergency department for recent symptoms of trouble speaking, "out of body experience". He states that yesterday while he was driving with his he all of a sudden felt an odd sensation come over him and felt that he was not safe to drive. They arrived at the restaurant they were going to for dinner and he describes a feeling of not really being aware of what he was doing. He states he also had trouble forming the words he wanted to say. He states he did not have trouble thinking of them or understanding what people were saying just being able to state them himself. He denies any trouble with chewing or swallowing that day at dinner. His stated that he was acting abnormally for himself, such as not paying attention to what was going on around them and getting into the backseat of the car after dinner stating that he was not going to drive. She states that he proceeded to sit in the passenger side seat in the front and while she drove home for the next 2 hours he proceeded to be in and out of consciousness. He describes a out of body experience where he was looking down upon himself but is not able to describe much more than that. His was also present to the emergency department for the interview, states that approximately a week ago episode where he suddenly fell forward without any reason. And the week before that he was having trouble remembering things short-term memory which was not something he normally had a problem with. No personal or family history of cardiac disease, hypertension, stroke, diabetes. Patient takes herbal supplements for constipation, turmeric, vitamin D, magnesium. Principal Diagnosis Presyncope Discharge Exam Constitutional WD/WN, vitals as above Eyes PERRL, conjunctivae normal, anicteric sclerae Respiratory normal respiratory effort, lungs clear to auscultation Cardiovascular RRR, no murmur, no edema Musculoskeletal no cyanosis or clubbing, extremities motor strength 5/5 Skin no rashes, warm and dry Neurologic patellar DTR's 2+ bilat, sensation intact and PERRL, EOMI, accommodation nl, no face palsy, no dysarthria Psychiatric A+Ox3, euthymic affect Discharge Data Allergies Allergy/AdvReac Type Severity Reaction Status Date / Time prednisone AdvReac Agitated, Unverified 12/20/20 20:09 Anxious Consultations 12/20/20 20:52 ED Decision to Admit Stat 12/20/20 22:32 Consult Neurology Routine Ordered Studies 12/20/20 19:03 CT head/brain wo con Stat 12/20/20 21:05 CT angio head w con Urgent CT angio neck with con Urgent 12/20/20 22:32 MR brain wo con Routine Hospital Course (1) Pre-syncope: 55-year-old male admitted for TIA work-up. Pre-syncope CT head negative, CTA head and neck negative, MRI brain negative Description my patient more consistent with discrete episodes caused by different reasons ranging from decreased venous return due to dehydration/straining to hypoglycemia likely not neurologic in nature Echo showing normal left ventricular function with an EF of 55 to 60%, no interatrial shunt, no regional wall motion abnormalities noted Consider outpatient cardiac monitoring to fully exclude cardiac causes of presyncope Neurology consult - He has had an unremarkable imaging evaluation thus far including CT of the head, CT angiography of the head and neck, and brain MRI. He has an intact neurological examination this morning and was also intact during his evaluation in the emergency department. - His presentation would be unusual for stroke or TIA or seizure disorder. However, TIA may not be completely excluded. Furthermore, some of his symptoms could be suggestive of presyncope. - Follow-up with results of echocardiogram. Consider obtaining 30-day mobile cardiac outpatient telemetry. - Starting daily low-dose aspirin and a statin is not unreasonable in this patient. Lipid profile with elevated total cholesterol at 255, LDL 176, HDL 51 ASCVD risk score of 5.6% Due to elevated lipids will start patient on atorvastatin 40 mg daily Hemoglobin A1c of 6.1 recommend outpatient discussion Will defer aspirin at this time, recommend continued discussion of risks/benefits as an outpatient with PCP Dispo: Home - Self Care Total Time Total Time Spent Total Time Spent (In Minutes): <30 Discharge Plan Discharge Items Patient Disposition: Home - Self-Care Reason For Visit: TIA Discharge Diagnosis: Near syncope Activity: Per Instructions section Non-emergency contact: Primary Care Provider Call non-emergency contact if: you have any medication questions and your symptoms worsen Follow-up/Referrals: Salina Cooper CRNP [Primary Care Provider] - (PLEASE SCHEDULE WITH YOUR PRIMAY CARE IN 7-10 DAYS) Diet: Heart Healthy Addtl Attending Provider Instructions: You were admitted to [facility] due to several episodes that were concerning for neurologic cause. You were evaluated with brain imaging, all of which was negative. You were also seen by neurology who concurred that the episodes you described were most likely not neurologic in nature. As discussed, we believe that these episodes may have been caused by things ranging from hypoglycemia to exertion. You did have lab work that showed high cholesterol levels and as such, will be started on a cholesterol-lowering medication called atorvastatin (brand name Lipitor) 40 mg daily. You also had an echocardiogram done which showed normal heart function and no concerns for heart damage or abnormalities, helping to rule out cardiac causes for your episodes. We recommend that you follow-up with your primary care provider for discussion of your hospitalization and continued monitoring of your episodes. Pending Studies at Discharge: No Stand-Alone Forms: Medications to Prevent Stroke, [facility], Smoking Cessation Medications and DC Order Prescriptions: New atorvastatin 40 mg Tablet 40 mg PO QAM 30 Days Qty: 30 RF: 0 Discharge Orders: Discharge Order (Routine); Ordered 12/21/20 Ordered By: Nathaniel Butler/Other Patient Handouts: Intimacy After Stroke, Effects of a Stroke on the Brain ..., What Is a TIA?, Stroke: Taking Medicines, Stroke Prevention Activity Admission Data Admit Date/Time: 12/20/20 21:08 Attending Provider: Claude Preez Admit Provider: Amy Pop Primary Care Provider: Salina Cooper Other Providers: Pasha Tellez ; Giovanni Pierce Other Interventions: Discharge Summary Assessment (RN) Last Done: 12/21/20 16:53 Supervising Physician Co-Signing Physician Notes I personally examined the patient and verified all santiago points of history and exam, discussed case, and agree with decision making with Dr Paulino. Feeling better. Feeling up to going home. Discussed probable etiologies of his different episodes. He expressed understanding. Further discussed his quite high lipids, and rationale for primary prevention given his raw numbers. He expressed understanding. He and asked good questions. Vitals noted, in general he is awake and alert pleasant no distress. HEENT normocephalic atraumatic mucous membranes moist. Breathing unlabored no accessory muscle use good effort. Skin shows no rashes no pallor or icterus. Neuro without focal deficits. Episodes of not feeling like himselfthey seem to differ in etiology. Some seeming to be Valsalva creating a lightheadedness from poor venous return, the most recent likely being a degree of hypoglycemia from prolonged fasting. Fortunately none sound cardiac or neurologic in etiology. Appears stable for home. Significant dyslipidemiahis LDL of 176 and his non-HDL greater than 200 are concerning. While the data is a bit more nebulous on primary prevention, 1 with lipids this disproportionately high certainly seems to warrant medical management. We discussed side effects to watch for, discussed the rationale for starting atorvastatin 40 mg, and they asked good questions about lifestyleit appears that he eats fairly healthy overall, making it unfortunately unlikely that lifestyle change alone would get him to goal. Stable for home. Otherwise as above. Resident Activity Tracking Resident Involvement: Resident Care Provided Care Provided: Adult Hospital Medicine
[2020-12-21] MEDS ORDERED: STROKE PATIENT DISCHARGE STA (16:23)
--- NOTE | 2020-12-21 16:57 | Pharmacy Report ---
Pharmacist Stroke Counseling - Date of Service December 21, 2020 - Scope: Pharmacy has been consulted to provide medication discharge counseling for this patient admitted with transient ischemic attack as per the Pharmacist Discharge Counseling for Stroke Patients Protocol. - Medications on Discharge: New Rx's Medication Instructions Recorded atorvastatin 40 mg tablet 40 mg PO QAM 30 Days #30 tab 12/21/20 - Action: The above medications, specifically ones for stroke treatment/prophylaxis, have been reviewed in detail with the patient and/or patient floor representative(s) prior to discharge. This includes indication, common adverse reactions, drug interactions, and medication administration. Medication counseling has been employed using the teach-back method to ensure understanding. - Outcome: The patient and/or patient floor representative(s) have demonstrated understanding of the medications. Additional comments: - No obvious barriers to medication compliance identified - Patient had questions about duration of therapy - explained that plan for now would be indefinitely, but guided by lab results and outpatient providers. He planned to discuss with primary care provider on discharge. Thank you for allowing pharmacy to be involved in the care of this patient. Please call [phone] with any additional questions
--- NOTE | 2020-12-21 16:58 | Electrocardiogram Report ---
Test Reason : Blood Pressure : / mmHG Vent. Rate : 061 BPM Atrial Rate : 061 BPM P-R Int : 186 ms QRS Dur : 094 ms QT Int : 396 ms P-R-T Axes : 037 057 023 degrees QTc Int : 398 ms Normal sinus rhythm Normal ECG No previous ECGs available Confirmed by Andrew Castro ([id number]) on 12/21/2020 4:57:29 PM Referred By: REFERRED SELF Confirmed By:Andrew Castro
--- NOTE | 2020-12-21 17:11 | Billing Data ---
Date of Service December 21, 2020 Coding Level of Care Code 92518 OBS Care - Discharge
--- NOTE | 2020-12-21 20:02 | Billing Data ---
Date of Service December 21, 2020 Coding Level of Care Code INT OBSERVATION CARE 70M LVL 3
[2020-12-22 11:37] LABS: Anti Nuclear Antibody Screen NEGATIVE (NEGATIVE)
[2020-12-24 09:06] LABS: Anti Cardiolipin Ab IgG <2.0 GPL-U/mL; Anti Cardiolipin Ab IgM <2.0 MPL-U/mL; B2 Glycoprotein IgG <2.0 U/mL (<20.0); B2 Glycoprotein IgM <2.0 U/mL (<20.0); PTT LA Screen 32 sec (<=40)
== END 2020-12-21 17:34 | disposition home or self-care (01) ==
LOC: 2N 18:11 → ED 18:11 → SUATTDRO 21:08 → 2N 21:47